=== PATIENT | female | born 1935 | race Caucasian/White ===

== ENCOUNTER 2016-09-30 14:36 | Emergency (ER) | payer MEDICARE, BC ==
--- NOTE | 2016-09-30 14:58 | EDM.PDOC ---
ED HPI GENERAL MEDICAL PROBLEM - General Chief Complaint: Lower Extremity Injury/Pain Stated Complaint: [facility] Time Seen by Provider: 09/30/16 14:58 Source of Information: Reports: Patient - History of Present Illness INITIAL COMMENTS - FREE TEXT/NARRATIVE: Patient was brought here because her ambulance after a fall this afternoon. She was reportedly moving some furniture this afternoon and slipped and fell. She reports having her face and landing on her right hip. She is having significant pain to her right hip and difficulty moving her right lower extremity. She denies the medication and the ambulance declines this now. She denies numbness and tingling. Treatments [employer]: Reports: Other (see below) Other Treatments [employer]: refuses Right Leg Pain Score (Numeric/FACES): 10 - Related Data Allergies Allergy/AdvReac Type Severity Reaction Status Date / Time ciprofloxacin Allergy Dizziness Verified 09/30/16 14:53 Home Meds: Home Meds Ascorbate Calcium [Vitamin C] 500 mg PO DAILY 09/30/16 [History] Aspirin [Halfprin] 81 mg PO DAILY 09/30/16 [History] Cinnamon Bark [Cinnamon] 500 mg PO DAILY 09/30/16 [History] Cyanocobalamin (Vitamin B12) [Vitamin B12] 1,000 mcg PO DAILY 09/30/16 [History] Gluc HCl/Csa/Tavares Hy/Hyalur Ac [Glucosamine Chondroitin] 1 tab PO DAILY [History] Hydroclorothiazide 12.5 mg PO DAILY 09/30/16 [History] I Caps 1 cap PO BID 09/30/16 [History] Levothyroxine 150 mcg PO DAILY 09/30/16 [History] Pravastatin [Pravachol] 20 mg PO DAILY 09/30/16 [History] Ramipril 10 mg PO DAILY 09/30/16 [History] Ubidecarenone [Coq10] 0 mg PO DAILY 09/30/16 [History] Vitamin E/D-Alpha Natural 400 unit PO DAILY 09/30/16 [History] metFORMIN HCl [Metformin HCl] 500 mg PO DAILY 09/30/16 [History] Review of Systems - Review of Systems Review Of Systems: See Below Constitutional: Reports: No Symptoms Respiratory: Reports: Cough. Denies: Shortness of Breath, Wheezing, Sputum Cardiovascular: Reports: No Symptoms Musculoskeletal: Reports: Other (Right hip pain and limited ROM) Skin: Reports: Other (Shingles rash to right leg) Neurological: Reports: No Symptoms Psychiatric: Reports: No Symptoms ED EXAM, GENERAL - Physical Exam Exam: See Below Exam Limited By: No Limitations General Appearance: Alert, WD/WN, No Apparent Distress Respiratory/Chest: No Respiratory Distress, Lungs Clear, Normal Breath Sounds Cardiovascular: Normal Peripheral Pulses, Regular Rate, Rhythm. No: No Murmur ( II/ soft systolic murmur) Peripheral Pulses: 2+: Posterior Tibial (R) GI/Abdominal: Normal Bowel Sounds, Soft, Non-Tender Extremities: Other (RLE in external rotation. Pain to right hip joint. Severe pain with movement so full ROM not attempted. ) Neurological: Alert, Oriented, No Motor/Sensory Deficits Psychiatric: Normal Affect, Normal Mood Skin Exam: Warm, Dry, Zoster-Like Rash (to right upper thigh) Course - Vital Signs Last Recorded V/S: Last Vital Signs Temp 99.5 F 09/30/16 14:48 Pulse 95 09/30/16 14:48 Resp 20 09/30/16 14:48 BP 118/107 H 09/30/16 14:48 Pulse Ox 88 L 09/30/16 14:48 - Orders/Labs/Meds Orders: Active Orders 24 hr Category Date Time Status EKG 12 Lead [EKG Documentation Completion] [RC] STAT Care 09/30/16 16:38 Active Insert [place] Catheter [Insert Urinary Catheter] [OM.PC] Care 09/30/16 17:15 Ordered Q24H Peripheral IV Care [RC] . DIRECTED Care 09/30/16 17:10 Active Urinary Catheter Assessment [RC] ASDIRECTED Care 09/30/16 17:10 Active Chest 1V Frontal [CR] Stat Exams 09/30/16 16:40 Taken Hip Min 1V w Pelvis Rt [CR] Stat Exams 09/30/16 15:21 Taken Sodium Chloride 0.9% [Saline Flush] Med 09/30/16 17:08 Active 10 ml FLUSH ASDIRECTED PRN Peripheral IV Insertion Adult [OM.PC] Routine Oth 09/30/16 17:08 Ordered Medication Orders Sodium Chloride (Saline Flush) 10 ml FLUSH ASDIRECTED PRN PRN Reason: Keep Vein Open Last Admin: 09/30/16 17:12 Dose: 10 ml Meds: Medications Generic Name Dose Route Start Last Admin Trade Name Freq PRN Reason Stop Dose Admin Sodium Chloride 10 ml 09/30/16 17:08 09/30/16 17:12 Saline Flush FLUSH 10 ml ASDIRECTED PRN Administration Keep Vein Open Discontinued Medications Generic Name Dose Route Start Last Admin Trade Name Jeaneth PRN Reason Stop Dose Admin Hydromorphone HCl 0.5 mg 09/30/16 17:10 Dilaudid IVPUSH 09/30/16 17:11 ONETIME ONE - Re-Assessments/Exams Free Text/Narrative Re-Assessment/Exam: Patient tender to right hip joint, no swelling or ecchymosis. She does have resolving shingles rash to this area. Pulses good distal to injury. Patient declines pain medication at this time. Will get x-ray of pelvis/right hip. 09/30/16 16:00 Patient does have a right femoral neck fracture. Discussed repairing here patient is very apprehensive as there is no cardiology services in [place]. She does have a history of CABG in 2001. For this reason we'll transfer patient to [place] where cardiology services are available if needed. Discussed this with Dr. Burger/orthopedics who agrees to accept patient and plan for hip repair in the morning. EKG here demonstrates normal sinus rhythm and is similar to previous. Chest x- ray unremarkable. Patient did have full physical with her PCP 09/28/2016. CBC was unremarkable at that time,CMP normal with the exception of a glucose of 178, A1c was 7.1%. Creatinine was 0.9 at that time. Saline IV lock was inserted prior to her departure for [place]. As was Sal[place] catheter. Pain medication was ordered, 0.5 mg dilaudid as she does have pain with movement, [facility] then decided that she did not want this. She has had no medication for pain. 09/30/16 17:20 Departure - Departure Time of Disposition: 17:25 Disposition: DC/Tfer to Acute Hospital 02 Condition: fair Clinical Impression: Closed right hip fracture - Discharge Information Forms: ED Department Discharge - My Orders Last 24 Hours: My Active Orders 09/30/16 15:21 Hip Min 1V w Pelvis Rt [CR] Stat 09/30/16 16:38 EKG 12 Lead [EKG Documentation Completion] [RC] STAT 09/30/16 16:40 Chest 1V Frontal [CR] Stat 09/30/16 17:08 Sodium Chloride 0.9% [Saline Flush] 10 ml FLUSH ASDIRECTED PRN Peripheral IV Insertion Adult [OM.PC] Routine 09/30/16 17:10 Peripheral IV Care [RC] . DIRECTED Urinary Catheter Assessment [RC] ASDIRECTED 09/30/16 17:15 Insert [place] Catheter [Insert Urinary Catheter] [OM.PC] Q24H - Assessment/Plan Last 24 Hours: My Active Orders 09/30/16 15:21 Hip Min 1V w Pelvis Rt [CR] Stat 09/30/16 16:38 EKG 12 Lead [EKG Documentation Completion] [RC] STAT 09/30/16 16:40 Chest 1V Frontal [CR] Stat 09/30/16 17:08 Sodium Chloride 0.9% [Saline Flush] 10 ml FLUSH ASDIRECTED PRN Peripheral IV Insertion Adult [OM.PC] Routine 09/30/16 17:10 Peripheral IV Care [RC] . DIRECTED Urinary Catheter Assessment [RC] ASDIRECTED 09/30/16 17:15 Insert [place] Catheter [Insert Urinary Catheter] [OM.PC] Q24H
[2016-09-30] MEDS ORDERED: Sodium Chloride 0.9% 10 ML Syringe FLUSH PRN (17:08)
[2016-09-30] MEDS ORDERED: HYDROmorphone 0.5 MG/0.5 ML Syringe IVPUSH ONE (17:10)
[2016-09-30 18:22] VITALS: BP 140/88
--- NOTE | 2016-10-03 12:04 | CR ---
Chest: Frontal view of the chest was obtained. Comparison: No previous study. Heart size is slightly enlarged. Tortuous thoracic aorta is seen. Sternotomy is noted from previous CABG. Lungs are clear with no acute infiltrates. Impression: 1. Incidental findings as described above. Nothing acute is appreciated on frontal chest x-ray. Diagnostic code #2
--- NOTE | 2016-10-03 12:04 | CR ---
Pelvis and right hip: AP view of the pelvis was obtained as well as AP and lateral views of the right hip. Mildly impacted subcapital fracture within the right hip is seen. No additional fracture is appreciated. Bony structures are osteopenic. Impression: 1. Mildly impacted subcapital fracture within the right hip. Diagnostic code #3
== END 2016-09-30 17:40 ==
LOC: JD.ED 14:36 → SUPCPDRO 14:36 → JD.ED 17:40
DX: S72.011A Unspecified intracapsular fracture of right femur, initial encounter for closed fracture (principal); Z79.82 Long term (current) use of aspirin; Z79.899 Other long term (current) drug therapy; Z88.1 Allergy status to other antibiotic agents; W01.0XXA Fall on same level from slipping, tripping and stumbling without subsequent striking against object, initial encounter
CPT/HCPCS: 51702; 71010; 73501; 93005; 99285; J7050; 99284

== ENCOUNTER 2022-02-25 09:19 | Emergency (ER) | payer MEDICARE, BC | END 2022-02-25 09:40 | disposition left against medical advice (07) | LOC: JD.ED 09:19 | DX: Z53.21 Procedure and treatment not carried out due to patient leaving prior to being seen by health care provider (principal) ==

== ENCOUNTER 2022-02-25 10:16 | Emergency (ER) | payer MEDICARE, BC ==
[2022-02-25 10:49] VITALS: BP 168/102; PULSE 68
[2022-02-25] MEDS ORDERED: Sodium Chloride 0.9% 10 ML Syringe FLUSH PRN (10:49)
== END 2022-02-25 12:24 | disposition home or self-care (01) ==
LOC: JD.ED 10:16
DX: R07.89 Other chest pain (principal); E78.00 Pure hypercholesterolemia, unspecified; I10 Essential (primary) hypertension; E03.9 Hypothyroidism, unspecified; Z88.1 Allergy status to other antibiotic agents; Z79.899 Other long term (current) drug therapy
CPT/HCPCS: 36415; 71046; 80053; 83735; 83880; 84484; 85007; 85027; 85379; 85610; 85730; 93005; 99285; J3490

== ENCOUNTER 2023-03-01 15:52 | Emergency (ER) | payer MEDICARE, BC ==
[2023-03-01] MEDS ORDERED: Iopamidol 612 MG/ML 100 ML Bottle IVPUSH ONE (16:21)
[2023-03-01] MEDS ORDERED: Iopamidol 755 Mg/ML 100 ML Bottle IVPUSH ONE (16:21)
[2023-03-01 16:28] LABS: BASOPHILS PERCENT AUTO 0.4 % (0.0-1.0); EOSINOPHILS ABSOLUTE AUTO 0.2 K/mm3 (0.0-0.4); EOSINOPHILS PERCENT AUTO 2.7 % (0.0-6.0); HEMATOCRIT 35.3 % (37.0-47.0); HEMOGLOBIN 12.1 gm/dl (12.0-16.0); IMMATURE GRAN ABSOLUTE AUTO 0.04 K/mm3 (0.00-0.05); IMMATURE GRAN PERCENT AUTO 0.5 % (0.0-0.4); LYMPHOCYTES ABSOLUTE AUTO 2.6 K/mm3 (1.0-4.8); LYMPHOCYTES PERCENT AUTO 31.8 % (24.0-44.0); MEAN CORPUSCULAR HEMOGLOBIN 31.6 pg (28.0-32.0); MEAN CORPUSCULAR HGB CONC 34.3 g/dl (32.0-36.0); MEAN CORPUSCULAR VOLUME 92.2 fl (83.0-99.0); MEAN PLATELET VOLUME 8.8 fl (9.4-12.3); MONOCYTES ABSOLUTE AUTO 0.8 K/mm3 (0.0-0.8); MONOCYTES PERCENT AUTO 9.1 % (0.0-8.0); NEUTROPHILS ABSOLUTE AUTO 4.6 K/mm3 (1.8-7.7); NEUTROPHILS PERCENT AUTO 55.5 % (41.0-71.0); PLATELET COUNT,PLT 177 K/mm3 (150-400); RED BLOOD CELL COUNT 3.83 M/mm3 (4.10-5.30); WHITE BLOOD CELL COUNT,WBC 8.21 K/mm3 (3.9-11.3)
[2023-03-01] MEDS ORDERED: Sodium Chloride 0.9% 100 ML IV SCH (16:30)
[2023-03-01 16:46] LABS: INR 1.02; PROTHROMBIN TIME 10.9 SECONDS (9.7-12.0)
[2023-03-01 16:47] LABS: PTT,PARTIAL THROMBOPLSTIN TIME 26.8 SECONDS (21.7-31.4)
[2023-03-01 16:52] LABS: ALBUMIN 2.9 g/dl (3.4-5.0); ANION GAP 8.3 (5-15); BILIRUBIN TOTAL 0.3 mg/dL (0.2-1.0); CALCIUM 8.8 mg/dL (8.5-10.1); CREATININE 1.1 mg/dL (0.55-1.02); EST CRCL DRUG DOSING (CG) 39.08 mL/min; POTASSIUM,K 4.3 mEq/L (3.5-5.1); PROTEIN TOTAL,TP 5.7 g/dl (6.4-8.2)
[2023-03-01 17:55] LABS: APPEARANCE,URINE CLEAR (Clear); BILIRUBIN,URINE NEGATIVE (Negative); COLOR,URINE YELLOW (Yellow); GLUCOSE,URINE NEGATIVE (Negative); KETONES,URINE NEGATIVE (Negative); LEUKOCYTE ESTERASE,URINE NEGATIVE (Negative); NITRITE,URINE NEGATIVE (Negative); OCCULT BLOOD,URINE TRACE-INTACT (Negative); PROTEIN,URINE NEGATIVE (Negative); UROBILINOGEN,URINE 0.2 (0.2-1.0)
[2023-03-01 18:01] LABS: BACTERIA,URINE OCCASIONAL /hpf (FEW); RBC,URINE 0-5 /hpf (0-5); SQUAMOUS EPITHELIAL CELLS,UR 0-5 /hpf (0-5); WBC,URINE 0-5 /hpf (0-5)
[2023-03-01 18:02] LABS: MUCUS,URINE NOT SEEN /hpf (FEW)
[2023-03-01] MEDS ORDERED: Sodium Chloride 0.9% 1,000 ML IV SCH (18:15)
[2023-03-01 20:00] VITALS: BP 147/68; PULSE 86
== END 2023-03-01 20:00 ==
LOC: JD.ED 15:52
DX: R41.0 Disorientation, unspecified (principal); E78.00 Pure hypercholesterolemia, unspecified; I10 Essential (primary) hypertension; E03.9 Hypothyroidism, unspecified; Z95.0 Presence of cardiac pacemaker; Z79.84 Long term (current) use of oral hypoglycemic drugs; Z79.899 Other long term (current) drug therapy; Z88.1 Allergy status to other antibiotic agents
CPT/HCPCS: 36415; 70450; 70496; 70498; 80053; 81001; 84484; 85025; 85610; 85730; 93005; 96360; 99285; C1758; J3490; J7030; Q9967; 93010

== ENCOUNTER 2023-10-06 15:01 | Emergency (ER) | payer BC, MEDICARE ==
[2023-10-06 16:10] LABS: HEMOGLOBIN 12.7 gm/dl (12.0-16.0); MEAN CORPUSCULAR HGB CONC 33.4 g/dl (32.0-36.0); MEAN CORPUSCULAR VOLUME 89.8 fl (83.0-99.0); MEAN PLATELET VOLUME 8.8 fl (9.4-12.3); PLATELET COUNT,PLT 296 K/mm3 (150-400); RED BLOOD CELL COUNT 4.23 M/mm3 (4.10-5.30)
[2023-10-06 16:35] LABS: INR 1.22; PROTHROMBIN TIME 12.9 SECONDS (9.7-12.0)
[2023-10-06 16:38] LABS: A/G RATIO 0.5 (1-2); ALANINE AMINOTRANSFERASE,ALT 42 U/L (14-59); ALBUMIN 2.4 g/dl (3.4-5.0); ALKALINE PHOSPHATASE 107 U/L (46-116); ANION GAP 15.9 (5-15); ASPARTATE AMNIOTRANSFERASE,AST 23 U/L (15-37); BILIRUBIN TOTAL 0.5 mg/dL (0.2-1.0); BLOOD UREA NITROGEN,BUN 29 mg/dL (7-18); BUN/CREATININE RATIO 15.3 (14-18); CALCIUM 9.5 mg/dL (8.5-10.1); CARBON DIOXIDE,CO2 27 mEq/L (21-32); CHLORIDE,CL 92 mEq/L (98-107); CREATININE 1.9 mg/dL (0.55-1.02); ESTIMATED GFR 25 mL/min (>60); GLUCOSE RANDOM 255 mg/dL (70-99); POTASSIUM,K 4.9 mEq/L (3.5-5.1); PROTEIN TOTAL,TP 6.9 g/dl (6.4-8.2); SODIUM,NA 130 mEq/L (136-145)
[2023-10-06 16:41] LABS: BAND PERCENT MAN 0 % (0-10); BASOPHILS PERCENT MAN 0 (0.1-1.2); EOSINOPHILS PERCENT MAN 0 % (0.7-5.8); LYMPHOCYTES % ATYPICAL MANUAL 0 %; LYMPHOCYTES PERCENT MAN 3 % (20-40); MONOCYTES PERCENT MAN 5 % (2-10); PLATELET COUNT ESTIMATE ADEQUATE; TOXIC GRANULATION MODERATE
[2023-10-06 16:44] LABS: LACTIC ACID 1.5 mmol/L (0.4-2.0)
[2023-10-06 16:55] LABS: C-REACTIVE PROTEIN > 25.00 mg/dL (<0.30)
[2023-10-06] MEDS: Sodium Chloride 0.9% 10 ML Syringe FLUSH PRN (17:17)
[2023-10-06 17:55] LABS: APPEARANCE,URINE TURBID (Clear); BILIRUBIN,URINE NEGATIVE (Negative); COLOR,URINE YELLOW (Yellow); GLUCOSE,URINE NEGATIVE (Negative); KETONES,URINE NEGATIVE (Negative); LEUKOCYTE ESTERASE,URINE 1+ (Negative); NITRITE,URINE NEGATIVE (Negative); OCCULT BLOOD,URINE 3+ (Negative); PROTEIN,URINE 2+ (Negative); UROBILINOGEN,URINE 0.2 (0.2-1.0)
[2023-10-06] MEDS: Piperacillin/Tazobactam 4.5 GM in Sodium Chloride 0.9% 100 ML IV ONE (17:57)
[2023-10-06 18:04] LABS: BACTERIA,URINE MANY /hpf (FEW); MUCUS,URINE FEW /hpf (FEW); RBC,URINE 20-30 /hpf (0-5); WBC,URINE >100 /hpf (0-5)
[2023-10-06] MEDS: Sodium Chloride 0.9% 1,000 ML IV STA (18:33)
[2023-10-06] MEDS: HYDROmorphone 0.5 MG/0.5 ML Syringe IVPUSH ONE (19:08)
[2023-10-06 19:18] VITALS: BP 138/81; PULSE 98
== END 2023-10-06 19:12 ==
LOC: JD.ED 15:01
DX: N10 Acute pyelonephritis (principal); N28.89 Other specified disorders of kidney and ureter; I10 Essential (primary) hypertension; E78.00 Pure hypercholesterolemia, unspecified; E11.9 Type 2 diabetes mellitus without complications; E03.9 Hypothyroidism, unspecified; Z87.891 Personal history of nicotine dependence; Z90.49 Acquired absence of other specified parts of digestive tract; Z79.899 Other long term (current) drug therapy; Z79.890 Hormone replacement therapy; Z79.84 Long term (current) use of oral hypoglycemic drugs; Z88.1 Allergy status to other antibiotic agents
CPT/HCPCS: 36415; 71250; 74176; 80053; 81001; 83605; 85007; 85027; 85610; 86140; 87040; 87077; 87186; 96361; 96365; 96375; 99285; J1170; J2543; J3490; J7030; 87154